=== PATIENT | female | born 1965 | race Caucasian/White ===

== ENCOUNTER 2021-02-14 11:28 | Outpatient (RCR) | payer OTHER, SELFPAY ==
[2021-02-14 12:45] VITALS: BP 146/87; PULSE 102; RESP 18; TEMP 36.6; O2SAT 98
[2021-02-14] MEDS: FAMOTIDINE 20 MG TABLET PO (12:56)
[2021-02-14] MEDS: diphenhydrAMINE HCl CAP 25 MG CAPSULE PO (12:56)
[2021-02-14] MEDS: ACETAMINOPHEN 325 MG TABLET 650 MG PO (12:56)
[2021-02-14 14:28] VITALS: BP 157/66
== END 2021-02-14 16:03 | disposition home or self-care (01) ==
LOC: AMCINF 11:28
PROVIDERS: PCP Family Medicine; Referring Provider Family Medicine; Visit Provider Internal Medicine Hematology & Oncology
DX: Z23 Encounter for immunization (principal); U07.1 COVID-19; I10 Essential (primary) hypertension
CPT/HCPCS: A9270; M0243; Q0243

== ENCOUNTER 2021-07-25 12:18 | Emergency (ER) | payer OTHER, SELFPAY ==
[2021-07-25] VITALS (13 sets, daily range): BP systolic 154–187; BP diastolic 93–113; PULSE 62–87; RESP 14–24; TEMP 36.1; O2SAT 97–100
--- NOTE | ~2021-07-25 | CT_ITS ---
EXAMINATION: CT brain wo con DATE: 07/25/2021 21:06 INDICATION: Left-sided weakness. TECHNIQUE: Computed tomography (CT) of the head was performed without intravenous contrast. The mA wa s adjusted according to patient size. Iterative reconstruction technique was employed. The dose-lengt h product was 605.33 mGy-cm. COMPARISON: Head CT 07/25/2021 at 12:33 PM FINDINGS: There are surgical changes in right frontoparietal region with volume loss, surgical clips, and changes of right-sided craniotomy. There is a 9 mm hyperdense mass in the right periventricular white matter in this region. There is low-attenuation in the white matter involving the frontal lobes and internal capsules. There is low-attenuation in the bilateral basal ganglia. The ventricles are n ormal in size. The orbits are normal. There is mild mucosal thickening in the paranasal sinuses. The mastoid air cells are normal. IMPRESSION: 1. Stable 9 mm hyperdense mass in the right frontoparietal periventricular white matter adjacent to s urgical changes. The differential diagnosis includes residual arterial venous malformation and dystro phic calcifications. No adjacent vasogenic edema to suggest acute intraparenchymal hematoma. Comparis on with outside imaging would be useful. 2. Moderate nonspecific cerebral white matter disease and disease of the bilateral basal ganglia, whi ch likely represents chronic small vessel ischemic disease. Reviewed, dictated and finalized at location A. IMPRESSION: 1. Stable 9 mm hyperdense mass in the right frontoparietal periventricular whit e matter adjacent to surgical changes. The differential diagnosis includes resi dual arterial venous malformation and dystrophic calcifications. No adjacent va sogenic edema to suggest acute intraparenchymal hematoma. Comparison with outsi de imaging would be useful. 2. Moderate nonspecific cerebral white matter disease and disease of the bilate ral basal ganglia, which likely represents chronic small vessel ischemic diseas e.
--- NOTE | ~2021-07-25 | XR_ITS ---
EXAMINATION: XR chest 1V EXAM DATE: 07/25/2021 12:38 INDICATION: Dizziness. TECHNIQUE: Portable AP frontal chest x-ray was obtained. There is no prior study for comparison. FINDINGS: The lungs are clear. There are no pleural effusions. The cardiomediastinal silhouette is within normal limits. There is no pneumothorax suspected. The bones and soft tissues are unremarkab le. IMPRESSION: No acute cardiopulmonary findings. Reviewed, dictated and finalized at location B.
--- NOTE | ~2021-07-25 | CT_ITS ---
EXAMINATION: CT brain wo con EXAM DATE: 07/25/2021 12:34 INDICATION: Slurred speech and unsteady gait. TECHNIQUE: Spiral CT of the head was performed without contrast. Axial, coronal and sagittal images were reviewed. The dose-length product (DLP) for this examination was 605.33 mGy-cm. The exposure w as tailored according to patient size, and iterative reconstruction (ASIR) was used as additional dos e reduction technique. There is no prior study for comparison. FINDINGS: There is a metallic foreign body in the posterior aspect right frontal lobe, small to moder ate region of overlying encephalomalacia. Foreign body possible old right temporal craniotomy. Just medial to the metallic foreign body there is hyperdense region measuring about 6 mm extending to hurd the lateral ventricle, finding indicated on axial image 35. Density could indicate that this is small focus of acute hemorrhage. Differential diagnosis would include chronic dystrophic calcificatio n, aneurysm, hyperdense mass, although there is no significant adjacent white matter edema. Mild to moderate microangiopathy. No intraventricular hemorrhage, extra-axial collections or evidence of acute ischemic infarction. IMPRESSION: Small hyperdense right centrum semiovale region region medial to the metallic clip forei gn body that could be aneurysm clip. Differential diagnosis includes small acute intraparenchymal hem orrhage, aneurysm, dystrophic calcification, hyperdense mass. Reviewed, dictated and finalized at location B. IMPRESSION: Small hyperdense right centrum semiovale region region medial to t he metallic clip foreign body that could be aneurysm clip. Differential diagnos is includes small acute intraparenchymal hemorrhage, aneurysm, dystrophic calci fication, hyperdense mass.
--- NOTE | 2021-07-25 12:24 | ECG_ITS ---
Measurements Intervals [place] Rate: 71 P: 42 MA: 197 QRS: -40 QRSD: 104 T: 11 QT: 424 QTc: 463 Interpretive Statements SINUS RHYTHM MARKED LEFT AXIS DEVIATION [QRS AXIS < -30] MINIMAL VOLTAGE CRITERIA FOR LVH, CONSIDER NORMAL VARIANT [MEETS CRITERIA IN ONE OF: R(aVL), S(V1), R(V5), R(V5/V6)+S(V1)] BASELINE ARTIFACT NO PREVIOUS ECG AVAILABLE FOR COMPARISON Electronically Signed On 07-25-2021 15:48:57 CDT by Laron Murcia M.D.
[2021-07-25 12:49] LABS: Glucose Point of Care 115 mg/dl (65-105)
[2021-07-25 12:56] LABS: Basophils Percent Auto 0.4 % (0.2-1.2); Eosinophils Absolute Auto 0.1 K/mm3 (0-0.3); Hematocrit 42.6 % (37.0-47.0); Hemoglobin 13.9 g/dL (12.0-15.0); Immature Granulocyte Absolute 0.02 K/mm3 (0.00-0.031); Immature Granulocyte Percent A 0.3 % (0-0.5); Lymphocytes Absolute Auto 1.85 K/mm3 (0.9-3.2); Lymphocytes Percent Auto 27.2 % (18.3-44.2); Mean Corpuscular HGB Conc 32.6 g/dl (32-36); Mean Corpuscular Hemoglobin 32.2 pg (26-34); Mean Corpuscular Volume 98.6 fl (80-100); Mean Platelet Volume 9.4 fl (7.4-10.4); Monocytes Absolute Auto 0.5 K/mm3 (0.1-0.6); Monocytes Percent Auto 7.5 % (2.6-8.5); Neutrophils Absolute Auto 4.3 K/mm3 (1.3-6.7); Neutrophils Percent Auto 63.6 % (45.5-73.1); Platelet Count Result 273 k/mm3 (150-375); Red Blood Count 4.32 M/mm3 (4.2-5.4); White Blood Count 6.8 K/mm3 (4.5-10.0)
[2021-07-25 13:07] LABS: Alanine Aminotransferase 22 U/L (4-35); Albumin Level 4.4 g/dL (3.5-5.1); Alkaline Phosphatase 85 U/L (38-126); Anion Gap 7 mmol/L (8-16); Aspartate Amino Transferase 25 U/L (14-36); Bilirubin,Total 0.4 mg/dL (0.2-1.3); Blood Urea Nitrogen 20 mg/dL (7-17); Calcium 8.5 mg/dL (8.4-10.2); Carbon Dioxide 25 mmol/L (22-30); Chloride 105 mmol/L (98-107); Estimated Glomerular Filt Rate > 60; Glucose 118 mg/dL (65-110); Potassium 3.9 mmol/L (3.4-5.0); Sodium 137 mmol/L (137-145)
[2021-07-25 13:18] LABS: Troponin I < 0.012 ng/mL (0.000-0.034)
[2021-07-25 13:33] LABS: INR 0.9; Prothrombin Time 12.2 Seconds (11.1-14.7)
[2021-07-25 13:34] LABS: Partial Thromboplastin Time 28.4 SECONDS (22.3-36.8)
--- NOTE | 2021-07-25 15:51 | PC.NURSE ---
Dinner tray ordered for pt at this time per pt request.
[2021-07-25 16:29] LABS: SARS-CoV-2 RNA PCR Negative
--- NOTE | 2021-07-25 18:22 | ED.GENADULT ---
HPI - General Adult General Chief complaint: Neuro Symptoms/Deficit Stated complaint: SLURRED SPEECH, DIZZY, SINCE YESTERDAY Time Seen by Provider: 07/25/21 12:52 Source: patient and family Mode of arrival: ambulatory Limitations: no limitations History of Present Illness HPI narrative: 56-year-old with a history of hypertension, hyperlipidemia s/p AVM clipping almost 25 years ago at [facility] here with complaints of having slurred speech, dizzy and off balance since yesterday. Patient states that she was driving to work in heavy rain and was stuck in traffic on the way back she started having headache and dizziness she felt extremely exhausted fell asleep woke up this morning still feeling dizzy and off balance. She states that her right leg is 3 inch about the ground compared to the left. Also complains of minor headache. She denies any chest pain or shortness of breath or visual problems Onset (ago): day(s) (1) Severity: moderate Quality: aching Associated symptoms: headaches Related Data Allergies Allergy/AdvReac Type Severity Reaction Status Date / Time phenytoin Allergy Unknown Hallucinati Verified 04/08/21 14:17 ons PHENYTOIN SODIUM Allergy Unknown HALLUCINATI Uncoded 02/14/21 13:22 ONS PHENYTOIN SODIUM EXTENDED Allergy Unknown HALLUCINATI Uncoded 02/14/21 13:22 ONS Review of Systems Review of Systems: All systems reviewed & are unremarkable except as noted in HPI and below Constitutional: Constitutional: Reports no additional constitutional complaints Eyes: Eyes: Reports no additional eye complaints ENT: Reports system reviewed and no additional complaints, except as documented Cardiovascular: Cardiovascular: Reports no additional cardiovascular complaints Respiratory: Respiratory: Reports no additional respiratory complaints Gastrointestinal: Gastrointestinal: Reports no additional gastrointestinal complaints Musculoskeletal: Musculoskeletal: Reports no additional musculoskeletal complaints Neurologic: Reports as per HPI Psychiatric: Psychiatric: Reports no additional psychiatric complaints [facility] Past Medical History Medical History ACL tear Acute bronchitis Acute sinusitis Acute spontaneous intraventricular hemorrhage due to cerebral AVM 1989 Adjustment disorder, unspecified COVID-19 Traumatic hematoma of ear canal Surgical History Surgical History History of knee replacement Hx of appendectomy Family History Family History Mother Diabetes mellitus Depression Patient's mother is Sibling Hypertension Asthma Family history of malignant neoplasm of breast in first degree relative Father Family history of cardiovascular disease, Onset Age: 40 Family history of coronary artery disease Other Family history of mental disorder Social History Social History Alcohol intake: current Spiritual care concerns: No Exam Narrative: GENERAL: Well-appearing, well-nourished, and in no acute distress. HEAD: Normocephalic, atraumatic. EYES: PERRLA and EOMI. ENT: Nares clear, no rhinorrhea or epistaxis. Mucous membranes moist. NECK: Supple. CHEST: Clear to auscultation. No respiratory distress. HEART: Regular rate and rhythm. No murmur heard. Normal peripheral pulses. ABDOMEN: Soft, nontender, nondistended, normal active bowel sounds. EXTREMITIES: Normal range of motion. No edema. SKIN: Warm, dry, no rash. NEURO: No focal deficits. Alert and oriented x3. PSYCH: Normal mood and affect. Course Course Emergency Course: Patient remained asymptomatic while she is here in the ER most of the time. I reviewed her CAT scan findings with the radiologist, he did not think doing a CTA or MRI would be any more beneficial because of the clip.
--- NOTE | 2021-07-25 18:40 | PC.NURSE ---
Pt given 650MG Tylenol for a h/a rated a 7/10. Per EDP Dr Elliott CHAVIS.
[2021-07-25] MEDS: ACETAMINOPHEN 325 MG TABLET 650 MG PO (18:48)
[2021-07-25] MEDS: ONDANSETRON INJ 4 MG/2 ML VIAL (19:39)
== END 2021-07-25 21:45 | disposition home or self-care (01) ==
PROVIDERS: Emergency Provider Family Medicine; PCP Family Medicine
DX: R42 Dizziness and giddiness (principal); Z20.822 Contact with and (suspected) exposure to COVID-19; I10 Essential (primary) hypertension; E78.5 Hyperlipidemia, unspecified; Z86.16 Personal history of COVID-19; Z96.659 Presence of unspecified artificial knee joint; R90.82 White matter disease, unspecified; R94.31 Abnormal electrocardiogram [ECG] [EKG]
CPT/HCPCS: 36415; 70450; 71045; 80053; 82948; 84484; 85025; 85610; 85730; 93005; 96374; 99284; A9270; C9803; J2405; U0003; U0005

== ENCOUNTER 2023-04-20 15:04 | Emergency (ER) | payer OTHER, SELFPAY ==
[2023-04-20 15:05] VITALS: BP 173/107; PULSE 82; RESP 16; TEMP 36.6; O2SAT 100
--- NOTE | 2023-04-20 15:46 | ED.WOUNDLAC ---
HPI - Wound/Laceration General Chief Complaint: Wound/Laceration Stated Complaint: R 4TH FINGER LAC Time Seen by Provider: 04/20/23 15:23 History of Present Illness HPI narrative: 58-year-old female reports for evaluation for laceration to her right 4th finger that occurred 1 hour prior to arrival. Patient states she was using a cheese grater when she accidentally cut the tip of her 4th finger. It is actively bleeding. Tetanus is up-to-date. She is not anticoagulated. Related Data Allergies Allergy/AdvReac Type Severity Reaction Status Date / Time phenytoin Allergy Unknown Hallucinati Verified 01/13/23 11:38 ons prednisone AdvReac Intermediate Jittery Verified 01/13/23 11:38 PHENYTOIN SODIUM Allergy Unknown HALLUCINATI Uncoded 01/13/23 11:38 ONS PHENYTOIN SODIUM EXTENDED Allergy Unknown HALLUCINATI Uncoded 01/13/23 11:38 ONS Review of Systems Review of Systems: CONSTITUTIONAL: Denies fever, chills, or sweats. EYES: Denies visual changes, redness, or discharge. ENT: Denies rhinorrhea, congestion, sore throat, or otalgia. CARDIOVASCULAR: Denies chest pain, palpitations, or edema. RESPIRATORY: Denies cough or dyspnea. GASTROINTESTINAL: Denies abdominal pain, nausea, vomiting, or diarrhea. GENITOURINARY: Denies dysuria or hematuria. SKIN: See HPI MUSCULOSKELETAL: Denies back pain, joint pain, or myalgia. NEUROLOGIC: Denies headache, numbness, or weakness. PSYCHIATRIC: Denies anxiety or depression. [facility] Past Medical History Medical History ACL tear Acute bronchitis Acute sinusitis Acute spontaneous intraventricular hemorrhage due to cerebral AVM 1989 Adjustment disorder, unspecified COVID-19 Hypertensive encephalopathy syndrome Migraine Traumatic hematoma of ear canal Surgical History Surgical History History of knee replacement Hx of appendectomy Family History Family History Mother Diabetes mellitus Depression Patient's mother is Sibling Hypertension Asthma Family history of malignant neoplasm of breast in first degree relative Father Family history of cardiovascular disease, Onset Age: 40 Family history of coronary artery disease Other Family history of mental disorder Social History Social History Smoking status: Never smoker Alcohol intake: current Substance use: never Lack of Transportation: No Lack of Food: Never True Current Housing: I Have Housing Concerned About Future Housing: No Difficulty Paying Gas/Electric Bills: No Difficulty Paying for Meds: No Currently Unemployed: No Education: Master's Degree or Higher Difficulty w/ Childcare or Family Care: No Spiritual care concerns: No Exam Narrative: GENERAL: Well-appearing, well-nourished, and in no acute distress. HEAD: Normocephalic, atraumatic. NECK: Supple. EXTREMITIES: Normal range of motion. No edema. SKIN: RUE: <1cm superficial skin avulsion to the distal phalanx of the 4th finger. Mildly oozing blood. No nail involvement. No deep structures or foreign bodies visualized. Cap refill less than 2. Full range of motion of finger. Radial pulse 2 +. Sensation intact. NEURO: No focal deficits. Alert and oriented x3 Course Vital Signs Vital signs: Vital Signs Temperature 97.8 F 04/20/23 15:05 Pulse Rate 82 04/20/23 15:05 Respiratory Rate 16 04/20/23 15:05 Blood Pressure 173/107 H 04/20/23 15:05 Pulse Oximetry 100 04/20/23 15:05 Temperature 97.8 F 04/20/23 15:05 Pulse Rate 74 04/20/23 16:40 Respiratory Rate 16 04/20/23 16:40 Blood Pressure 149/88 H 04/20/23 16:40 Pulse Oximetry 99 04/20/23 16:40 MDM - Wound/Laceration MDM Narrative Medical decision making narrative: 58-ye
[2023-04-20 16:40] VITALS: BP 149/88; PULSE 74; RESP 16; O2SAT 99
== END 2023-04-20 16:43 | disposition home or self-care (01) ==
PROVIDERS: Emergency Provider Physician Assistant; PCP Family Medicine
DX: S61.214A Laceration without foreign body of right ring finger without damage to nail, initial encounter (principal); W27.4XXA Contact with kitchen utensil, initial encounter
CPT/HCPCS: 99282

== ENCOUNTER 2023-04-28 14:45 | Outpatient (CLI) | payer OTHER, SELFPAY ==
[2023-04-28 20:22] LABS: Anion Gap 7 mmol/L (8-16); Blood Urea Nitrogen 23 mg/dL (7-17); Calcium 8.8 mg/dL (8.4-10.2); Carbon Dioxide 29 mmol/L (22-30); Chloride 105 mmol/L (98-107); Estimated Glomerular Filt Rate > 60; Glucose 94 mg/dL (65-110); Potassium 3.8 mmol/L (3.4-5.0); Sodium 141 mmol/L (137-145)
[2023-04-28 20:48] LABS: Thyroid Stimulating Hormone 0.896 uIU/mL (0.465-4.680)
== END 2023-04-28 14:46 | disposition home or self-care (01) ==
LOC: ANHGOSHLAB 14:48
PROVIDERS: PCP Family Medicine; Visit Provider Family Medicine
DX: I10 Essential (primary) hypertension (principal)
CPT/HCPCS: 36415; 80048; 84443

== ENCOUNTER 2024-06-30 10:26 | Emergency (ER) | payer OTHER, SELFPAY ==
--- NOTE | ~2024-06-30 | XR_ITS ---
CHEST RADIOGRAPH, PA AND LATERAL CLINICAL HISTORY: CP, CHEST PAIN RADIATING, NAUSEA THIS MORNING . COMPARISON: 07/25/2021 TECHNIQUE: PA and lateral views of the chest. FINDINGS The cardiomediastinal silhouette is unremarkable. The lungs are clear. Visualized osseous structures and soft tissues are unremarkable. IMPRESSION: No focal infiltrate or effusion. Reviewed, dictated and finalized at location A. OUT PRESS OPERATOR
--- NOTE | 2024-06-30 10:27 | ECG_ITS ---
Test Date: 2024-06-30 10:45:05 Measurements Intervals [place] Rate: 78 P: 44 MA: 197 QRS: -21 QRSD: 110 T: 41 QT: 395 QTc: 452 Interpretive Statements SINUS RHYTHM POSSIBLE ANTERIOR MYOCARDIAL INFARCTION , OF INDETERMINATE AGE [30 ms Q WAVE IN V3/V4, OR R < 0.2 mV IN V4] No previous ECG available for comparison Electronically Signed On 06-30-2024 14:05:35 DECISION SUPPORT ANALYST by Bj Win M.D.
[2024-06-30 10:54] VITALS: BP 157/101; PULSE 77; RESP 16; TEMP 36.2; O2SAT 99
[2024-06-30 10:59] LABS: Basophils Percent Auto 0.3 % (0.2-1.2); Eosinophils Absolute Auto 0.1 K/mm3 (0-0.3); Eosinophils Percent Auto 1.9 % (0-4.4); Hemoglobin 14.2 g/dL (12.0-15.0); Immature Granulocyte Absolute 0.02 K/mm3 (0.00-0.031); Immature Granulocyte Percent A 0.3 % (0-0.5); Lymphocytes Absolute Auto 1.71 K/mm3 (0.9-3.2); Lymphocytes Percent Auto 24.5 % (18.3-44.2); Mean Corpuscular Hemoglobin 32.1 pg (26-34); Mean Corpuscular Volume 97.3 fl (80-100); Mean Platelet Volume 9.4 fl (7.4-10.4); Monocytes Absolute Auto 0.5 K/mm3 (0.1-0.6); Monocytes Percent Auto 7.6 % (2.6-8.5); Neutrophils Absolute Auto 4.6 K/mm3 (1.3-6.7); Neutrophils Percent Auto 65.4 % (45.5-73.1); Platelet Count Result 280 k/mm3 (150-375); Red Blood Count 4.42 M/mm3 (4.2-5.4); Red Cell Distribution Width 13.2 % (11.5-14.5)
[2024-06-30 11:08] LABS: Alanine Aminotransferase 31 U/L (6-35); Albumin Level 4.3 g/dL (3.5-5.1); Alkaline Phosphatase 91 U/L (38-126); Anion Gap 12 mmol/L (4-12); Aspartate Amino Transferase 28 U/L (14-36); Bilirubin,Total 0.6 mg/dL (0.2-1.3); Blood Urea Nitrogen 16 mg/dL (7-17); Calcium 8.9 mg/dL (8.4-10.2); Carbon Dioxide 23 mmol/L (22-30); Chloride 106 mmol/L (98-107); Estimated CRCL calculation 79 ml/min; Estimated Glomerular Filt Rate > 60; Glucose 121 mg/dL (65-110); Lipase 50 U/L (23-300); Potassium 4.2 mmol/L (3.4-5.0); Prothrombin Time 13.2 Seconds (11.1-14.7); Sodium 141 mmol/L (137-145)
[2024-06-30 11:09] LABS: Partial Thromboplastin Time 29.2 Seconds (22.3-36.8)
[2024-06-30 11:20] LABS: Troponin I < 0.012 ng/mL (0.000-0.034)
--- OUTSIDE RECORDS SUMMARY | 2024-06-30 11:56 | XMS_ITS | Patient Health Summary ---
Author Organization [facility] Address [address] [place] [address] Care Team Providers Care Print Color Matcher Name Role Phone Unavailable Primary Care Provider Unavailabl e Note from [facility],non-owned Affiliates and Associated Physician Practices is amultiple site organization consisting of ambulatory clinics and hospital sitesin [place], [place], [place] and [place]. This disclosure is being madepursuant to the Care Everywhere program and may not contain all information available regarding this patient. Last updated 18.[facility] [place] ([facility]) Allergies * Phenytoin(Psychiatric) -Medium Criticality Medications * Be aware that medications may not be up to date on this document. Alwaysverify current medications with the patient. * ATORVASTATIN CALCIUM PO * Levothyroxine Sodium (SYNTHROID PO) * benzonatate (TESSALON) 200 MG capsule(Started 06/04/2019) Take 1 capsule by mouth 3 times daily as needed for Cough Social History Tobacco Use Types Packs/Day Years Used Date Smoking Tobacco: Never Smokeless Tobacco: Never Sex and Gender Information Value Date Recorded Sex Assigned at Not on file Gender Identity Not on file Sexual Orientation Not on file Last Filed Vital Signs Vital Sign Reading Time Taken Comments Blood Pressure 148/92 06/04/2019 3:19 PM ELECTRONIC ASSEMBLER Pulse 90 06/04/2019 3:19 PM ELECTRONIC ASSEMBLER Temperature 37 C (98.6 F) 06/04/2019 3:19 PM ELECTRONIC ASSEMBLER Respiratory Rate 16 06/04/2019 3:19 PM ELECTRONIC ASSEMBLER Oxygen Saturation 97% 06/04/2019 3:19 PM ELECTRONIC ASSEMBLER Inhaled Oxygen Concentration - - Weight 81.6 kg (180 lb) 06/04/2019 3:19 PM ELECTRONIC ASSEMBLER Height 165.1 cm (5' 5 ) 06/04/2019 3:19 PM ELECTRONIC ASSEMBLER Body Mass Index 29.95 06/04/2019 3:19 PM ELECTRONIC ASSEMBLER Procedures * INFLUENZA A+B - POINT OF CARE (AMB)(Performed 06/04/2019) Performed for Upper respiratory tract infection, unspecified type Results * INFLUENZA A+B - POINT OF CARE (AMB) (06/04/2019 3:40 PM ELECTRONIC ASSEMBLER) Influenza A Antigen Rapid Negative Negative Influenza B Antigen Rapid Negative Negative Influenza Internal Control positive NEGATIVE - POSITIVE Influenza Lot Number [id number] Influenza Expiration Date Other NASOPHARYNGEAL SWAB / Unknown 06/04/2019 3:40 PM ELECTRONIC ASSEMBLER Joon Alston DRUM SPRAYER-DIRECTOR PRODUCT LAB - POINT OF CARE ORDERABLES
--- OUTSIDE RECORDS SUMMARY | 2024-06-30 11:56 | XMS_ITS | Referral Summary ---
Author Organization [facility] Address [address] [place] [address] Care Team Providers Care Ad Operations Specialist Name Role Phone Unavailable Primary Care Provider Unavailabl e Source Comments [facility],non-owned Affiliates and Associated Physician Practices is amultiple site organization consisting of ambulatory clinics and hospital sitesin [place], [place], [place] and [place]. This disclosure is being madepursuant to the Care Everywhere program and may not contain all information available regarding this patient. Last updated 18.[facility] Narrative Allergies Active Allergy Reactions Criticality Noted Date Comments Phenytoin Psychiatric Medium 06/04/2019 Medications * Be aware that medications may not be up to date on this document. Alwaysverify current medications with the patient. Medication Sig Dispensed Refills Start Date End Date Status ATORVASTATIN CALCIUM PO Active Levothyroxine Sodium (SYNTHROID PO) Active benzonatate (TESSALON) 200 MG capsule Take 1 capsule by mouth 3 times daily as needed for Cough 30 capsule 06/04/2019 Active Social History Tobacco Use Types Packs/Day Years Used Date Smoking Tobacco: Never Smokeless Tobacco: Never Sex and Gender Information Value Date Recorded Sex Assigned at Not on file Gender Identity Not on file Sexual Orientation Not on file Last Filed Vital Signs Vital Sign Reading Time Taken Comments Blood Pressure 148/92 06/04/2019 3:19 PM AUTO GLASS TECHNICIAN Pulse 90 06/04/2019 3:19 PM AUTO GLASS TECHNICIAN Temperature 37 C (98.6 F) 06/04/2019 3:19 PM AUTO GLASS TECHNICIAN Respiratory Rate 16 06/04/2019 3:19 PM AUTO GLASS TECHNICIAN Oxygen Saturation 97% 06/04/2019 3:19 PM AUTO GLASS TECHNICIAN Inhaled Oxygen Concentration - - Weight 81.6 kg (180 lb) 06/04/2019 3:19 PM AUTO GLASS TECHNICIAN Height 165.1 cm (5' 5 ) 06/04/2019 3:19 PM AUTO GLASS TECHNICIAN Body Mass Index 29.95 06/04/2019 3:19 PM AUTO GLASS TECHNICIAN Plan of Treatment Not on file
--- OUTSIDE RECORDS SUMMARY | 2024-06-30 11:56 | XMS_ITS | Clinical Summary ---
Author Organization [facility] Address [address] [place] [address] Care Team Providers Care Education Department Registrar Name Role Phone Unavailable Primary Care Provider Unavailabl e Source Comments [facility],non-owned Affiliates and Associated Physician Practices is amultiple site organization consisting of ambulatory clinics and hospital sitesin [place], [place], [place] and [place]. This disclosure is being madepursuant to the Care Everywhere program and may not contain all information available regarding this patient. Last updated 18.[facility] Allergies Active Allergy Reactions Criticality Noted Date [...] Comments Blood Pressure 148/92 06/04/2019 3:19 PM BREAD PACKER Pulse 90 06/04/2019 3:19 PM BREAD PACKER Temperature 37 C (98.6 F) 06/04/2019 3:19 PM BREAD PACKER Respiratory Rate 16 06/04/2019 3:19 PM BREAD PACKER Oxygen Saturation 97% 06/04/2019 3:19 PM BREAD PACKER Inhaled Oxygen Concentration - - Weight 81.6 kg (180 lb) 06/04/2019 3:19 PM BREAD PACKER Height 165.1 cm (5' 5 ) 06/04/2019 3:19 PM BREAD PACKER Body Mass Index 29.95 06/04/2019 3:19 PM BREAD PACKER Plan of Treatment Health Maintenance Due Date Last Done Comments COLOGUARD (AGES 45-75) - COL ON CA SCREENING 1964 COLON MONITORING 1964 COLONOSCOPY - COLON CA SCREENING 1964 CT COLONOGRAPHY - COLON CA SCREENING 1964 Colorectal Cancer Screening 1964 FIT - COLON CA SCREENING 1964 FLEX SIG - COLON CA SCREENING 1964 MAMMOGRAM 1964 PAP SMEAR 1964 HIV SCREENING 1979 HEPATITIS C SCREENING 03/24/1982 DTAP/TDAP/TD VACCINES (1 - Tdap) 1983 PNEUMOCOCCAL VACCINE 50+ (1 of 1 - PCV) 2014 ZOSTER VACCINE (1 of 2) 2014 SCREENING FOR DIABETES 06/04/2019 COVID-19 VACCINE ( - 2023-2 5 season) 2023 INFLUENZA VACCINE (#1) 2023 Respiratory Syncytial Virus (RSV) Vaccine Pt: or over 60 yrs (1 - Risk 60-74 years 1-dose series) 2024 DEPRESSION SCREENING 04/27/2024 HEPATITIS B VACCINE Aged Out No longe r eligible based on patient's age to complete this topic HIB VACCINE Aged Out No longer eligi ble based on patient's age to complete this topic HPV VACCINE Aged Out No longer eligi ble based on patient's age to complete this topic MENINGOCOCCAL (Group B) VACCINE Aged Out No longer eligible based on patient's age to complete this topic MENINGOCOCCAL VACCINE Aged Out No warner anna eligible based on patient's age to complete this topic PNEUMOCOCCAL VACCINE Aged Out No long er eligible based on patient's age to complete this topic
--- NOTE | 2024-06-30 12:41 | ED.CHESTPAIN ---
HPI - Chest Pain General Chief Complaint: Chest Pain <HERLINDA Dawson Last Filed: 06/30/24 12:50> Stated Complaint: CP radiates to back right arm <HERLINDA Dawson Last Filed: 06/30/24 12:50> Time Seen by Provider: 06/30/24 12:41 <HERLINDA Dawson Last Filed: 06/30/24 12:50> Focused HPI: Patient is a 59 y/o female, with PMH of HTN, HLD, hypothyroidism, who presents to the ED with c/o CP. Patient reports she woke up this morning with pain in her midsternal and right-sided chest. Pain began to radiate into her right shoulder and her right arm. Described as a tightness and pressure. Worse with deep breathing. Denies aggravation with movement of RUE. She notes the pain was intermittent for the past couple days, but much more intense this morning. She did also have an episode of pain a few days ago while swimming/exercising. States pain is still present currently. Denies cough/cold sx's, fevers, BLE pain or swelling. FHx of heart disease in her father in his 40s. She does mention she has been under increased stress this week. GENERAL: Well-appearing, well-nourished, and in no acute distress. HEAD: Normocephalic, atraumatic. CHEST: Clear to auscultation. ?No respiratory distress. HEART: Regular rate and rhythm.? MSK: No peripheral edema. No chest wall tenderness to palpation. NEURO: ?Alert and oriented x3. Patient screened in triage and initial orders placed.? ?Additional care and disposition to be based upon?diagnostic testing and treatment. <HERLINDA Dawson Last Filed: 06/30/24 12:50> Source: patient <HERLINDA Dawson Filed: 06/30/24 12:50> Mode of arrival: ambulatory <HERLINDA Dawson Last Filed: 06/30/24 12:50> Limitations: no limitations <HERLINDA Dawson Filed: 06/30/24 12:50> History of Present Illness HPI narrative: I agree with the above HPI <Eduardo Renee MD - Last Filed: 06/30/24 19:14> Related Data Home Medications: Home Medications ?Medication ?Instructions ?Recorded ?Confirmed ?Last Taken ?Type fexofenadine 180 mg tablet 180 mg PO DAILY 06/16/24 06/16/24 Unknown History (Marianna Allergy) <Stacey Hay PA-C - Last Filed: 06/30/24 12:50> Allergies/Adverse Reactions: Allergies Allergy/AdvReac Type Severity Reaction Status Date / Time phenytoin Allergy Unknown Hallucinati Verified 06/16/24 10:06 ons prednisone AdvReac Intermediate Jittery Verified 06/16/24 10:06 <Stacey Hay PA-C - Last Filed: 06/30/24 12:50> Review of Systems Review of Systems: All systems reviewed & are unremarkable except as noted in HPI and below <Eduardo Renee MD - Last Filed: 06/30/24 19:14> [facility] Past Medical History Medical History: Medical History Right knee pain History of arteriovenous malformation (AVM) Hypertensive encephalopathy syndrome Migraine Traumatic hematoma of ear canal COVID-19 Acute spontaneous intraventricular hemorrhage due to cerebral AVM 1990 Adjustment disorder, unspecified Acute bronchitis Acute sinusitis ACL tear <Stacey Hay PA-C - Last Filed: 06/30/24 12:50> Surgical History Surgical History: Surgical History Hx of appendectomy History of knee replacement Left- <Stacey Hay PA-C - Last Filed: 06/30/24 12:50> Family History Family History: Family History Mother Diabetes mellitus Depression Patient's mother is Sibling Hypertension Asthma Family history of malignant neoplasm of breast in first degree relative Father Family history of cardiovascular disease, Onset Age: 40 Family history of coronary artery disease Other Family history of mental disorder <Stacey Hay PA-C - Last Filed: 06/30/24 12:50> Social History Social History: Social History Smoking status: Never smoker Second hand tobacco smoke exposure: Yes Alcohol intake: current Substance use: never Substance use type: does not use Do You Feel Safe in your Home?: Yes Lack of Transportation: No Lack of Food: Never True Current Housing: I Have Housing Concerned About Future Housing: No Difficulty Paying Gas/Electric Bills: No Difficulty Paying for Meds: No Currently Unemployed: No Education: Master's Degree or Higher Difficulty w/ Childcare or Family Care: No Living arrangements: with family Occupation/Education: occupation 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 HEAD: normocephalic, atraumatic. EYES: PERRLA/EOMI, conjunctivae clear. NOSE: Normal no drainage EARS:TMS clear with good light reflex. THROAT: Pharynx clear, no exudate. NECK: Supple. No adenopathy, no masses. RESPIRATORY: Airway patent, respirations nonlabored. Clear to auscultation bilaterally, no rales, rhonchi, wheezing. CARDIOVASCULAR: Regular rate and rhythm without murmurs rubs or gallops. ABDOMINAL: Soft, nontender, nondistended, normal bowel sounds MUSCULOSKELETAL: Moves all extremities. Strength/ROM intact, No edema, No calf tenderness. NEURO: Alert. Cranial nerves II through XII intact. Good gait. Good coordination SKIN: Warm, dry. Normal Color PSYCHIATRIC: Normal affect/mood. <Eduardo Renee MD - Last Filed: 06/30/24 19:14> Course Vital Signs Vital signs: Vital Signs Temperature 97.2 F L 06/30/24 10:54 Pulse Rate 77 06/30/24 10:54 Respiratory Rate 16 06/30/24 10:54 Blood Pressure 157/101 H 06/30/24 10:54 Pulse Oximetry 99 06/30/24 10:54 Oxygen Delivery Room Air 06/30/24 10:54 Temperature 97.2 F L 06/30/24 10:54 Pulse Rate 77 06/30/24 15:32 Respiratory Rate 16 06/30/24 15:32 Blood Pressure 134/92 H 06/30/24 15:32 Pulse Oximetry 99 06/30/24 15:32 Oxygen Delivery Room Air 06/30/24 14:36 <Stacey Hay PA-C - Last Filed: 06/30/24 12:50> Vital Signs Temperature 97.2 F L 06/30/24 10:54 Pulse Rate 77 06/30/24 10:54 Respiratory Rate 16 06/30/24 10:54 Blood Pressure 157/101 H 06/30/24 10:54 Pulse Oximetry 99 06/30/24 10:54 Oxygen Delivery Room Air 06/30/24 10:54 Temperature 97.2 F L 06/30/24 10:54 Pulse Rate 77 06/30/24 15:32 Respiratory Rate 16 06/30/24 15:32 Blood Pressure 134/92 H 06/30/24 15:32 Pulse Oximetry 99 06/30/24 15:32 Oxygen Delivery Room Air 06/30/24 14:36 <Eduardo Renee MD - Last Filed: 06/30/24 19:14> MDM - Chest Pain MDM Narrative Medical decision making narrative: MSE by MARGARITA in triage. <Stacey Hay PA-C - Last Filed: 06/30/24 12:50> MSE by MARGARITA in triage. 59-year-old female presented to the emergency department for evaluation for right-sided chest wall pain. Patient is currently afebrile with no leukocytosis and hemoglobin of 14.2. Patient had a negative D-dimer. Patient has negative serial troponins. Chest x-ray was negative. Patient does have reports of recent upper respiratory infection. Exam is consistent with pleurisy. <Eduardo Renee MD - Last Filed: 06/30/24 19:14> Differential Diagnosis Differential diagnosis: Likely fracture of rib, pneumothorax, stable angina, unstable angina pectoris, atypical chest pain, st elevation myocardial infarction, costochondritis, chest pain and other <Eduardo Renee MD - Last Filed: 06/30/24 19:14> Lab Data Attestation: I reviewed the patient's lab results. <Eduardo Renee MD - Last Filed: 06/30/24 19:14> Result diagrams: 03/06/25 10:50 06/30/24 10:50 <Stacey Hay PA-C - Last Filed: 06/30/24 12:50> Labs: Lab Results 06/30/24 06/30/24 06/30/24 Range/Units 10:50 10:55 14:22 WBC 7.0 (4.5-10.0) K/mm3 RBC 4.42 (4.2-5.4) M/mm3 Hgb 14.2 (12.0-15.0) g/dL Hct 43.0 (37.0-47.0) % MCV 97.3 (80-100) fl MCH 32.1 (26-34) pg MCHC 33.0 (32-36) g/dl RDW 13.2 (11.5-14.5) % Plt Count 280 (150-375) k/mm3 MPV 9.4 (7.4-10.4) fl Immature Gran % (Auto) 0.3 (0-0.5) % Neut % (Auto) 65.4 (45.5-73.1) % Lymph % (Auto) 24.5 (18.3-44.2) % [place] % (Auto) 7.6 (2.6-8.5) % Eos % (Auto) 1.9 (0-4.4) % Baso % (Auto) 0.3 (0.2-1.2) % Lymph # (Auto) 1.71 (0.9-3.2) K/mm3 [place] # (Auto) 0.5 (0.1-0.6) K/mm3 Eos # (Auto) 0.1 (0-0.3) K/mm3 Baso # (Auto) 0.0 (0.0-0.1) K/mm3 Abs Immat Gran (auto) 0.02 (0.00-0.031) K/mm3 Absolute Neuts (auto) 4.6 (1.3-6.7) K/mm3 Absolute Nucleated RBC 0.000 (0.0-0.012) K/mm3 Nucleated RBC % 0.0 (0.0-0.2) % PT 13.2 (11.1-14.7) Seconds INR 1.0 APTT 29.2 (22.3-36.8) Seconds D-Dimer 0.29 (<0.48) ug/mL Sodium 141 (137-145) mmol/L Potassium 4.2 (3.4-5.0) mmol/L Chloride 106 (98-107) mmol/L Carbon Dioxide 23 (22-30) mmol/L Anion Gap 12 (4-12) mmol/L BUN 16 (7-17) mg/dL Creatinine 0.70 (0.7-1.0) mg/dL Estim Creat Clear Calc 79 ml/min Estimated GFR > 60 (59 - ) Glucose 121 H (65-110) mg/dL Calcium 8.9 (8.4-10.2) mg/dL Total Bilirubin 0.6 (0.2-1.3) mg/dL AST 28 (14-36) U/L ALT 31 (6-35) U/L Alkaline Phosphatase 91 (38-126) U/L Troponin I < 0.012 < 0.012 (0.000-0.034) ng/mL Total Protein 7.0 (6.3-8.2) g/dL Albumin 4.3 (3.5-5.1) g/dL Lipase 50 (23-300) U/L <Stacey Hay PA-C - Last Filed: 06/30/24 12:50> Lab Results 06/30/24 06/30/24 06/30/24 Range/Units 10:50 10:55 14:22 WBC 7.0 (4.5-10.0) K/mm3 RBC 4.42 (4.2-5.4) M/mm3 Hgb 14.2 (12.0-15.0) g/dL Hct 43.0 (37.0-47.0) % MCV 97.3 (80-100) fl MCH 32.1 (26-34) pg MCHC 33.0 (32-36) g/dl RDW 13.2 (11.5-14.5) % Plt Count 280 (150-375) k/mm3 MPV 9.4 (7.4-10.4) fl Immature Gran % (Auto) 0.3 (0-0.5) % Neut % (Auto) 65.4 (45.5-73.1) % Lymph % (Auto) 24.5 (18.3-44.2) % [place] % (Auto) 7.6 (2.6-8.5) % Eos % (Auto) 1.9 (0-4.4) % Baso % (Auto) 0.3 (0.2-1.2) % Lymph # (Auto) 1.71 (0.9-3.2) K/mm3 [place] # (Auto) 0.5 (0.1-0.6) K/mm3 Eos # (Auto) 0.1 (0-0.3) K/mm3 Baso # (Auto) 0.0 (0.0-0.1) K/mm3 Abs Immat Gran (auto) 0.02 (0.00-0.031) K/mm3 Absolute Neuts (auto) 4.6 (1.3-6.7) K/mm3 Absolute Nucleated RBC 0.000 (0.0-0.012) K/mm3 Nucleated RBC % 0.0 (0.0-0.2) % PT 13.2 (11.1-14.7) Seconds INR 1.0 APTT 29.2 (22.3-36.8) Seconds D-Dimer 0.29 (<0.48) ug/mL Sodium 141 (137-145) mmol/L Potassium 4.2 (3.4-5.0) mmol/L Chloride 106 (98-107) mmol/L Carbon Dioxide 23 (22-30) mmol/L Anion Gap 12 (4-12) mmol/L BUN 16 (7-17) mg/dL Creatinine 0.70 (0.7-1.0) mg/dL Estim Creat Clear Calc 79 ml/min Estimated GFR > 60 (59 - ) Glucose 121 H (65-110) mg/dL Calcium 8.9 (8.4-10.2) mg/dL Total Bilirubin 0.6 (0.2-1.3) mg/dL AST 28 (14-36) U/L ALT 31 (6-35) U/L Alkaline Phosphatase 91 (38-126) U/L Troponin I < 0.012 < 0.012 (0.000-0.034) ng/mL Total Protein 7.0 (6.3-8.2) g/dL Albumin 4.3 (3.5-5.1) g/dL Lipase 50 (23-300) U/L <Eduardo Renee MD - Last Filed: 06/30/24 19:14> Imaging Data Radiologist's impression: Impressions Chest X-Ray 06/30/24 11:42 IMPRESSION: No focal infiltrate or effusion. <Eduardo Renee MD - Last Filed: 06/30/24 19:14> Discharge Plan Discharge Clinical Impression: Acute chest wall pain, Pleurisy <Stacey Hay PA-C - Last Filed: 06/30/24 12:50> Patient Disposition: Home, Self-Care <Stacey Hay PA-C - Last Filed: 06/30/24 12:50> Condition: Stable <Stacey Hay PA-C - Last Filed: 06/30/24 12:50> Instructions: Antibiotic Form, Pleurisy (ED), Chest Wall Pain (ED) <HERLINDA Dawson Last Filed: 06/30/24 12:50> Additional Instructions: Scheduled ibuprofen for pain control. Have close follow-up with your primary care physician for additional outpatient cardiac testing. If you have any worsening symptoms then please call or return to the emergency department. <Stacey Hay PA-C - Last Filed: 06/30/24 12:50> Patient Language: Bulgarian <Stacey Hay PA-C - Last Filed: 06/30/24 12:50> Prescriptions: No Action fexofenadine [Marianna Allergy] 180 mg tablet 180 mg PO DAILY diclofenac sodium 75 mg tablet,delayed release (DR/EC) 75 mg PO BID Qty: 60 0RF metoprolol succinate 50 mg tablet extended release 24 hr 50 mg PO DAILY Qty: 90 1RF amlodipine 10 mg tablet 10 mg PO DAILY Qty: 90 1RF atorvastatin 20 mg tablet See Rx Instructions .ROUTE .COMPLEX Qty: 90 1RF Dose Instruction: Take 1 tablet by mouth once daily Rx Instructions: Take 1 tablet by mouth once daily levothyroxine [Euthyrox] 100 mcg tablet See Rx Instructions .ROUTE .COMPLEX Qty: 90 1RF Dose Instruction: Take 1 tablet by mouth once daily Rx Instructions: Take 1 tablet by mouth once daily dextroamphetamine-amphetamine [Adderall XR] 20 mg capsule,extended release 24hr 20 mg PO DAILY Qty: 30 0RF Rx Instructions: May <Stacey Hay PA-C - Last Filed: 06/30/24 12:50> Follow-up/Referrals: Amee Otto MD [Primary Care Provider] - <Stacey Hay PA-C - Last Filed: 06/30/24 12:50> Quality HEART score for chest pain patients History: slightly suspicious <Eduardo Renee MD - Last Filed: 06/30/24 19:14> ECG: normal <Eduardo Renee MD - Last Filed: 06/30/24 19:14> Age: > 45 and < 65 years <Eduardo Renee MD - Last Filed: 06/30/24 19:14> Risk factors: 1 or 2 risk factors <Eduardo Renee MD - Last Filed: 06/30/24 19:14> Troponin: < or = to 1x normal limit <Eduardo Renee MD - Last Filed: 06/30/24 19:14> Heart score: 2 <Eduardo Renee MD - Last Filed: 06/30/24 19:14>
--- NOTE | 2024-06-30 14:27 | ECG_ITS ---
Test Date: 2024-06-30 14:32:46 Measurements Intervals [place] Rate: 76 P: 48 ID: [id number] QRS: -12 QRSD: 104 T: 50 QT: 421 QTc: 475 Interpretive Statements SINUS RHYTHM POSSIBLE ANTERIOR MYOCARDIAL INFARCTION , PROBABLY OLD [30 ms Q WAVE IN V3/V4, OR R < 0.2 mV IN V4] Compared to ECG 06/30/2024 10:45:05 No significant changes Electronically Signed On 07-01-2024 16:15:32 DIRECTOR TOXICOLOGY by Karime Hurt M.D.
[2024-06-30 14:33] VITALS: BP 124/79; PULSE 76; RESP 12; O2SAT 100
[2024-06-30] MEDS: ASPIRIN 81 MG CHEWABLE TABLET 324 MG PO (14:35)
[2024-06-30 14:36] VITALS: O2SAT 97
[2024-06-30 14:39] LABS: D Dimer 0.29 ug/mL (<0.48)
[2024-06-30 14:52] LABS: Troponin I < 0.012 ng/mL (0.000-0.034)
--- OUTSIDE RECORDS SUMMARY | 2024-06-30 14:55 | XMS_ITS | Patient Health Summary ---
Author Organization [facility] Address [address] [place] [address] Care Team Providers Care Jboss Developer Name Role Phone Unavailable Primary Care Provider Unavailabl e Note from [facility],non-owned Affiliates and Associated Physician Practices is amultiple site organization consisting of ambulatory clinics and hospital sitesin [place], [place], [place] and [place]. This disclosure is being madepursuant to the Care Everywhere program and may not contain all information available regarding this patient. Last updated 18.[facility] [employer] Allergies * Phenytoin(Psychiatric) -Medium Criticality Medications * [...] Comments Blood Pressure 148/92 06/04/2019 3:19 PM PARACHUTE OFFICER Pulse 90 06/04/2019 3:19 PM PARACHUTE OFFICER Temperature 37 C (98.6 F) 06/04/2019 3:19 PM PARACHUTE OFFICER Respiratory Rate 16 06/04/2019 3:19 PM PARACHUTE OFFICER Oxygen Saturation 97% 06/04/2019 3:19 PM PARACHUTE OFFICER Inhaled Oxygen Concentration - - Weight 81.6 kg (180 lb) 06/04/2019 3:19 PM PARACHUTE OFFICER Height 165.1 cm (5' 5 ) 06/04/2019 3:19 PM PARACHUTE OFFICER Body Mass Index 29.95 06/04/2019 3:19 PM PARACHUTE OFFICER Procedures * INFLUENZA A+B - POINT OF CARE (AMB)(Performed 06/04/2019) Performed for Upper respiratory tract infection, unspecified type Results * INFLUENZA A+B - POINT OF CARE (AMB) (06/04/2019 3:40 PM PARACHUTE OFFICER) Influenza A Antigen Rapid Negative Negative Influenza B Antigen Rapid Negative Negative Influenza Internal Control positive NEGATIVE - POSITIVE Influenza Lot Number [id number] Influenza Expiration Date Other NASOPHARYNGEAL SWAB / Unknown 06/04/2019 3:40 PM PARACHUTE OFFICER Joon Alston BLADE FILER-POSTAL SERVICE MAIL PROCESSOR LAB - POINT OF CARE ORDERABLES
--- OUTSIDE RECORDS SUMMARY | 2024-06-30 14:55 | XMS_ITS | Clinical Summary ---
Author Organization [facility] Address [address] [place] [address] Care Team Providers Care Technical Service Rep Name Role Phone Unavailable Primary Care Provider Unavailabl e Source Comments [facility],non-owned Affiliates and Associated Physician Practices is amultiple site organization consisting of ambulatory clinics and hospital sitesin [place], [place], [place] and [place]. This disclosure is being madepursuant to the Care Everywhere program and may not contain all information available regarding this patient. Last updated 18.[facility] [employer] Allergies Active Allergy Reactions Criticality Noted Date [...] Comments Blood Pressure 148/92 06/04/2019 3:19 PM SENIOR INFORMATION SECURITY ENGINEER Pulse 90 06/04/2019 3:19 PM SENIOR INFORMATION SECURITY ENGINEER Temperature 37 C (98.6 F) 06/04/2019 3:19 PM SENIOR INFORMATION SECURITY ENGINEER Respiratory Rate 16 06/04/2019 3:19 PM SENIOR INFORMATION SECURITY ENGINEER Oxygen Saturation 97% 06/04/2019 3:19 PM SENIOR INFORMATION SECURITY ENGINEER Inhaled Oxygen Concentration - - Weight 81.6 kg (180 lb) 06/04/2019 3:19 PM SENIOR INFORMATION SECURITY ENGINEER Height 165.1 cm (5' 5 ) 06/04/2019 3:19 PM SENIOR INFORMATION SECURITY ENGINEER Body Mass Index 29.95 06/04/2019 3:19 PM SENIOR INFORMATION SECURITY ENGINEER Plan of Treatment Health Maintenance Due Date [...]
--- OUTSIDE RECORDS SUMMARY | 2024-06-30 14:55 | XMS_ITS | Referral Summary ---
Author Organization [facility] Address [address] [place] [address] Care Team Providers Care Siebel Solution Architect Name Role Phone Unavailable Primary Care Provider Unavailabl e Source Comments [facility],non-owned Affiliates and Associated Physician Practices is amultiple site organization consisting of ambulatory clinics and hospital sitesin [place], [place], [place] and [place]. This disclosure is being madepursuant to the Care Everywhere program and may not contain all information available regarding this patient. Last updated 18.[facility] [employer] Allergies Active Allergy Reactions Criticality Noted Date [...] Comments Blood Pressure 148/92 06/04/2019 3:19 PM GOVERNMENT RELATIONS MANAGER Pulse 90 06/04/2019 3:19 PM GOVERNMENT RELATIONS MANAGER Temperature 37 C (98.6 F) 06/04/2019 3:19 PM GOVERNMENT RELATIONS MANAGER Respiratory Rate 16 06/04/2019 3:19 PM GOVERNMENT RELATIONS MANAGER Oxygen Saturation 97% 06/04/2019 3:19 PM GOVERNMENT RELATIONS MANAGER Inhaled Oxygen Concentration - - Weight 81.6 kg (180 lb) 06/04/2019 3:19 PM GOVERNMENT RELATIONS MANAGER Height 165.1 cm (5' 5 ) 06/04/2019 3:19 PM GOVERNMENT RELATIONS MANAGER Body Mass Index 29.95 06/04/2019 3:19 PM GOVERNMENT RELATIONS MANAGER Plan of Treatment Not on file
[2024-06-30 15:32] VITALS: BP 134/92; PULSE 77; RESP 16; O2SAT 99
== END 2024-06-30 15:30 | disposition home or self-care (01) ==
PROVIDERS: Physician Assistant; Emergency Provider Emergency Medicine; PCP Family Medicine
DX: R09.1 Pleurisy (principal); R07.89 Other chest pain; I10 Essential (primary) hypertension; I67.4 Hypertensive encephalopathy; E03.9 Hypothyroidism, unspecified; E78.5 Hyperlipidemia, unspecified; F43.20 Adjustment disorder, unspecified; Z96.659 Presence of unspecified artificial knee joint; Z86.16 Personal history of COVID-19; Z77.22 Contact with and (suspected) exposure to environmental tobacco smoke (acute) (chronic); Z79.899 Other long term (current) drug therapy; R94.31 Abnormal electrocardiogram [ECG] [EKG]
CPT/HCPCS: 36415; 71046; 80053; 83690; 84484; 85025; 85380; 85610; 85730; 93005; 99284; A9270